=== PATIENT | male | born 1955 | race Caucasian/White ===

== ENCOUNTER 2019-03-29 18:05 | Emergency (ER) | payer OTHER, SELFPAY ==
[2019-03-29 18:12] VITALS: BP 175/89; PULSE 79; RESP 18; TEMP 36.6; O2SAT 98; BMI 24.2
--- NOTE | 2019-03-29 18:37 | DI.RAD.S_ITS ---
PROCEDURE: XR FINGER LT MIN 2V INDICATIONS: L thumb laceration from table saw TECHNIQUE: AP hand, 2 views of the 1st digit acquired. COMPARISON: None. FINDINGS: Bones: There is a moderately displaced fracture involving the volar base of the 1st distal phalanx. Soft tissues: There is a soft tissue laceration within the volar aspect of the 1st digit. There are a few associated indistinct slightly hyperdense foci. IMPRESSION: 1. Moderately displaced fracture at the base of the 1st distal phalanx. 2. Soft tissue laceration with small indistinct hypodense foci which represent small bone fragments or radiopaque foreign bodies. Dictated by: Homer Ballesteros M.D. on 03/29/2019 at 19:13 Approved by: Homer Ballesteros M.D. on 03/29/2019 at 19:16
[2019-03-29] MEDS: TET,DIPH,PERTUSS(ACELL),VAC/PF 0.5 ML SYRINGE IM (19:12)
[2019-03-29] MEDS: LIDO 1%/SOD BICARB 8.4% (10ML) 10 ML SYRINGE INJ (20:03)
[2019-03-29] MEDS: cephALEXin 250 MG PREPACK 1 BOTTLE MISC (20:03)
[2019-03-29] MEDS: cephALEXin 250 MG CAPSULE 500 MG PO (20:04)
[2019-03-29] MEDS: BACITRACIN OINT 0.9 GM PCKT 1 APPLIC TOP (20:04)
[2019-03-29 21:53] VITALS: BP 154/86; PULSE 68; RESP 18; TEMP 36.7; O2SAT 98
[2019-03-29] MEDS: HYDROCODONE/ACET 5/325 PREPACK 1 BOTTLE MISC (21:53)
--- NOTE | 2019-03-29 23:51 | ED.WOUNDLAC ---
HPI - Wound/Laceration <BRODIE Walls - Last Filed: 03/30/19 00:18> General Chief Complaint: Wound/Laceration Stated Complaint: LEFT HAND THUMB LACERATION Time Seen by Provider: 03/29/19 18:07 Source: patient Mode of arrival: Ambulatory Limitations: no limitations History of Present Illness HPI narrative: This is a 63-year-old male, nonsmoker, who presents to ED from [facility] at Dr. Morlaes's office with a chief complain of deep laceration from a table saw on left thumb which occurred around 1500 today. Patient arrived to ED with large bulky pressure dressing on affected thumb. Patient reports he was working with wood board with a table saw and it somehow sucked in the wooden board along the gloved L thumb. Patient right dominant hand and last tetanus in 2003. Patient reports numbness to tip of left thumb and difficulty with flexing and extending the affected thumb. Patient has a history of asthma and hypertension. Patient had taken 1 tab of hydrocodone at 4:35 p.m. before coming into ED which has been helping with discomfort. Last solid meal at noon and had sips of water at 5:00 p.m.. Related Data Previous Rx's Medication Instructions Recorded cephalexin [Keflex] 500 mg PO Q6H 9 Days #36 cap 03/29/19 hydrocodone-acetaminophen [[place]] 1 tab PO Q6H PRN #20 tab 03/29/19 Allergies Allergy/AdvReac Type Severity Reaction Status Date / Time fluticasone AdvReac Verified 03/29/19 18:11 [From Advair Diskus] salmeterol AdvReac Verified 03/29/19 18:11 [From Advair Diskus] Review of Systems <Ariel Henriquez BLADE CHANGER - Last Filed: 03/30/19 00:18> Review of Systems Narrative: General: Denies fever, chills, fatigue, malaise, sweats. HEENT: Denies sinus pain, ear pain, sore throat, difficulty swallowing, dizziness. Respiratory: Denies dyspnea, cough, wheezing, hemoptysis, sputum. Cardiovascular: Denies chest pain, palpitations, orthopnea, edema. Gastrointestinal: Denies nausea, vomiting, abdominal pain, diarrhea, constipation, melena. : Denies dysuria, frequency, incontinence, hematuria, urinary retention. Musculoskeletal: See HPI Skin: Denies rash, skin lesions, or other. Neurologic: Denies weakness, headache, numbness, change in speech, confusion, seizures, incoordination. Psychiatric: No concerning psychosocial issues. 12-point review of systems is negative except for those stated above. Patient History <BRODIE Walls - Last Filed: 03/30/19 00:18> Medical History Asthma (Acute) Hypertension (Acute) Surgical History Hx of cholecystectomy (Acute) Social History Smoking Status: Never smoker Smoking Status: Never smoker alcohol intake frequency: 0-2 drinks per day Substance Use Type: does not use Exam <BRODIE Walls - Last Filed: 03/30/19 00:18> Narrative Exam Narrative: General appearance: well developed, well nourished, in no acute distress. Head: normocephalic, atraumatic, no scalp lesions, non-tender. ENT: Hearing grossly intact. Nose without bleeding, purulent discharge, septal hematoma or deviation. Turbinate without erythema or swelling. Mucous membrane moist, no mucosal lesion. Throat without erythema, tonsillar hypertrophy or exudate. Uvula in midline, airway patent. Neck/Thyroid: neck supple, full range of motion, no visible masses or meningeal signs. No JVD, non-tender without lymphadenopathy. Skin: Deep jagged U shape laceration to left 1st digit involving IP joint with slow oozing. Warm and dry and appropriate color for ethnicity. Heart: no clubbing, no cyanosis, no edema. S1 and S2 normal. RRR w/o murmurs, clicks, or bruits. Lungs: Breathing even and unlabored. No stridor. No accessory muscles used. Able to speak in full sentences. Chest: normal shape and expansion. Abdomen: non-obese, non-distended. Neurologic: alert and oriented. 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 Psych: good eye contact, normal affect. Initial Vital Signs Initial Vital Signs: Vital Signs Temperature 97.8 F 03/29/19 18:12 Pulse Rate 79 03/29/19 18:12 Respiratory Rate 18 03/29/19 18:12 Blood Pressure 175/89 H 03/29/19 18:12 Pulse Oximetry 98 03/29/19 18:12 Extrem Left upper extremity: hand Details: abnormal to inspection (appears to have an appearance of hyperextension on L thumb), normal capillary refill, neuromotor exam abnormal Details: wrist extension abnormal, thumb opposition abnormal, thumb IP flexion abnormal and other (thumb IP extension abnormal), neurosensory exam abnormal (numbness to distal Left thumb phalax), tendon exam abnormal, tenderness Location: of the thumb Location: at the distal phalanx, abnormal ROM of finger (thumb-decreased strength with flexion and extension AROM and PROM) and laceration (deep jagged laceration involving IP joint of L thumb in volar aspect) <Christiano Anders DO - Last Filed: 03/30/19 03:36> Initial Vital Signs Initial Vital Signs: Vital Signs Temperature 97.8 F 03/29/19 18:12 Pulse Rate 79 03/29/19 18:12 Respiratory Rate 18 03/29/19 18:12 Blood Pressure 175/89 H 03/29/19 18:12 Pulse Oximetry 98 03/29/19 18:12 Procedures <BRODIE Walls - Last Filed: 03/30/19 00:18> Laceration Repair Laceration 1: Site: other (thumb) Side (If applicable): left Size (cm): 3.5 Description: irregular Depth: involves tendon Local Anesthetic: lidocaine 1% and with bicarb Amount of anesthesia used (mL): 2.5 Pre-repair: wound explored and irrigated extensively Skin layer closed with: nylon Size (cm): 4-0 Number of sutures: 8 Technique: simple, interrupted Orthopedic Splinting/Casting Injury #1: Side: left Upper Extremity Injury Location: finger Upper Extremity Immobilizer: aluminum form splint Post splinting neuro exam: intact Post splinting vascular exam: intact Placed by: Nursing Scores <BRODIE Walls Last Filed: 03/30/19 00:18> GCS Stew coma scale eye opening: Spontaneous Stew coma scale verbal response: Orientated [place] coma scale motor response: Obey commands [place] coma scale total score: 15 Course <BRODIE Walls - Last Filed: 03/30/19 00:18> Orders Ordered: ED Orders 03/29/19 18:37 XR finger LT min 2V Stat Discontinued Medications Hydrocodone Bitart/Acetaminophen (Vicodin 5/325 Prepack) 1 bottle MISC SEEINSTR ONE Stop: 03/29/19 21:22 Last Admin: 03/29/19 21:53 Dose: 1 bottle Documented by: SANDRA Bacitracin (Bacitracin) 1 applic TOP NOW ONE Stop: 03/29/19 19:58 Last Admin: 03/29/19 20:04 Dose: 1 applic Documented by: LAILA Cefazolin Sodium (Keflex 250 Mg Prepack) 1 bottle MISC SEEINSTR ONE Stop: 03/29/19 19:58 Last Admin: 03/29/19 20:03 Dose: 1 bottle Documented by: LAILA Cephalexin HCl (Keflex) 500 mg PO NOW ONE Stop: 03/29/19 19:58 Last Admin: 03/29/19 20:04 Dose: 500 mg Documented by: LAILA Diphtheria/Tetanus/Acell Pertussis (Adacel) 0.5 ml IM .ONCE ONE Stop: 03/29/19 18:38 Last Admin: 03/29/19 19:12 Dose: 0.5 ml Documented by: SANDRA Lidocaine/Sodium Bicarbonate (Buffered Lidocaine 10 Ml Syr) 10 ml INJ NOW ONE Stop: 03/29/19 19:58 Last Admin: 03/29/19 20:03 Dose: 10 ml Documented by: LAILA Vital Signs Vital signs: Vital Signs - 8 hr 03/29/19 21:53 Temperature 98.1 F Pulse Rate 68 Respiratory Rate 18 Blood Pressure [Left Arm] 154/86 H Pulse Oximetry 98 <Christiano Anders DO - Last Filed: 03/30/19 03:36> Course Course Narrative: I have independently examined patient and discussed history and ROS. I spoke with our product/industry consultant orthopedist (Dr. Levine) whom suggests digital block, extensive washout, wound repair, splint. He will refer case to hand surgeon (Dr. Pike). As a backup I contacted [facility] product/industry consultant whom stated they would be happy to help as well. The contact info was included in discharge. Orders Ordered: ED Orders 03/29/19 18:37 XR finger LT min 2V Stat Discontinued Medications Hydrocodone Bitart/Acetaminophen (Vicodin 5/325 Prepack) 1 bottle MISC SEEINSTR ONE Stop: 03/29/19 21:22 Last Admin: 03/29/19 21:53 Dose: 1 bottle Documented by: SANDRA Bacitracin (Bacitracin) 1 applic TOP NOW ONE Stop: 03/29/19 19:58 Last Admin: 03/29/19 20:04 Dose: 1 applic Documented by: LAILA Cefazolin Sodium (Keflex 250 Mg Prepack) 1 bottle MISC SEEINSTR ONE Stop: 03/29/19 19:58 Last Admin: 03/29/19 20:03 Dose: 1 bottle Documented by: LAILA Cephalexin HCl (Keflex) 500 mg PO NOW ONE Stop: 03/29/19 19:58 Last Admin: 03/29/19 20:04 Dose: 500 mg Documented by: LAILA Diphtheria/Tetanus/Acell Pertussis (Adacel) 0.5 ml IM .ONCE ONE Stop: 03/29/19 18:38 Last Admin: 03/29/19 19:12 Dose: 0.5 ml Documented by: SANDRA Lidocaine/Sodium Bicarbonate (Buffered Lidocaine 10 Ml Syr) 10 ml INJ NOW ONE Stop: 03/29/19 19:58 Last Admin: 03/29/19 20:03 Dose: 10 ml Documented by: LAILA Vital Signs Vital signs: Vital Signs - 8 hr 03/29/19 21:53 Temperature 98.1 F Pulse Rate 68 Respiratory Rate 18 Blood Pressure [Left Arm] 154/86 H Pulse Oximetry 98 MDM - Wound/Laceration <Ariel BRODIE Henriquez - Last Filed: 03/30/19 00:18> Differential Diagnosis Differential diagnosis: Likely laceration and other (open fracture, tendon/ligament injury) Medical Records Attestation: I reviewed the patient's medical records. Imaging Data XR-finger LT: Radiologist's Impression: [address] [address] XRay Report Signed Patient: Marino Ventura EMR#: [id number] : [id number]:[id number] Age/Sex: 63 / MDate of Service: 03/29/19 Loc: ED Accession Number: [id number] Procedure: XR finger LT min 2V Ordering Provider: Ariel Henriquez PROCEDURE: XR FINGER LT MIN 2V INDICATIONS: L thumb laceration from table saw TECHNIQUE: AP hand, 2 views of the 1st digit acquired. COMPARISON: None. FINDINGS: Bones: There is a moderately displaced fracture involving the volar base of the 1st distal phalanx. Soft tissues: There is a soft tissue laceration within the volar aspect of the 1st digit. There are a few associated indistinct slightly hyperdense foci. IMPRESSION: 1. Moderately displaced fracture at the base of the 1st distal phalanx. 2. Soft tissue laceration with small indistinct hypodense foci which represent small bone fragments or radiopaque foreign bodies. Dictated by: Homer Ballesteros M.D. on 03/29/2019 at 19:13 Approved by: Homer Ballesteros M.D. on 03/29/2019 at 19:16 MDM Narrative Medical decision making narrative: This is a 63 year old male who presents to ED with deep laceration involving his left thumb IP joint and intra-articular joint from a table saw this afternoon. X-ray test today shows a moderately displaced fracture involving the fall are base of the 1st distal phalanx with soft tissue laceration and small in distinctive hypodensities foci which represents small bone fragments or radial plaque foreign bodies. Patient had decreased sensation and strength for flexion and extension of affected finger. Wound was explored and irrigated extensively with gentle pressure. No obvious foreign body was visualized. The laceration has repaired with loose simple interrupted sutures. Please see procedure note. Patient was medicated with Keflex 500 mg and prepack and written script has been provided for 10 day course for q.i.d. dose. Patient also discharged to home with prepack [place] and prescription has been provided for additional medication for pain management and informed narcotic medication precautions. Patient advised to take [id number] Tylenol for pain and [place] for severe pain. Patient reports has GI upsets with Motrin intake. Affected finger has been placed on aluminum splint for immobilization after dressed with Xeroform and bulky dressing. Dr. Levine at [facility] was consulted with the findings. Patient was provided with [facility] and also [facility] for hand specialist since [facility] orth[facility]ist hand specialist is currently on leave. Return precautions, wound care were discussed and patient verbalized understanding and agrees with the treatment plan. Tdap has been updated today. Discharge Plan Departure Patient Disposition: Home Clinical Impression: Displaced fracture of distal phalanx of left thumb, initial encounter for open fracture Discharge Date/Time: 03/29/19 22:06 Instructions: DI for Laceration Repair Activity Restrictions/Additional Instructions: You have been diagnosed with [mildly displaced open fracture involving thumb joint in L hand. The laceration has been repaired and the affected finger has been placed on a splint. You were medicated with Keflex 500 mg while in the ED as a 1st dose of antibiotic medication and prepack to prevent infection and medicated with [place] for pain]. What to do: *Take your medications as directed. Keflex 500 mg 4 times a day for next 10 days. [place] every 6 hours as needed for severe pain. It can cause drowsiness so please do not drive, drink alcohol, or operate heavy equipments. Please monitor for signs and symptoms for infection. Please keep finger splint all times. Please do not get your wound soaked in the water until suture removal. Keep your dressing intact for next 24 hrs. After then, you could remove your dressing, wash with soap and water. Pat dry with clean paper towel and dress it with antibiotic ointment. You can change dressing as needed and daily. Please monitor for signs and symptoms for infection such as increasing redness, swelling, warmth, pain, fever, purulent discharge. If this occurs, please return to ED or follow up with your primary care physician since your wound may be gotten infected. Please follow up with your primary care provider in 2-3 days for recheck wound. Your suture should be removed [7-10 ] days. This can be done by your primary provider, walk-in clinic or here in ED. Please keep your wound clean, dry and intact all times. *Follow up with your primary care provider/[facility] in 2-3 days, call for an appointment. Let them know you were seen in the ED and that we asked you to be seen in follow up. Also Dr. Hendrix's contact information has been provided for a back up at [facility]. *Return to ED if you have any new, worsening, or concerning symptoms or chest pain, breathing difficulty, severe pain, signs and symptoms for infection or any acute concerns Prescriptions: New cephalexin [Keflex] 500 mg capsule 500 mg PO Q6H 9 Days Qty: 36 RF: 0 hydrocodone-acetaminophen [[place]] 5-325 mg tablet 1 tab PO Q6H PRN (Reason: pain) Qty: 20 RF: 0 Referrals: [facility] [Provider Group] Godwin Morales MD [Primary Care Provider] - Polo Hendrix [Non-Staff] -
== END 2019-03-29 22:06 | disposition home or self-care (01) ==
PROVIDERS: Emergency Provider Nurse Practitioner Family; PCP Family Medicine
DX: S62.522B Displaced fracture of distal phalanx of left thumb, initial encounter for open fracture (principal); W31.2XXA Contact with powered woodworking and forming machines, initial encounter; Z23 Encounter for immunization
CPT/HCPCS: 12002; 73140; 90471; 99283; 99284; 90715

== ENCOUNTER 2019-03-30 07:50 | Emergency (ER) | payer OTHER, SELFPAY ==
[2019-03-30 07:54] VITALS: BP 168/77; PULSE 74; RESP 18; TEMP 36.7; O2SAT 97; BMI 24.2
--- NOTE | 2019-03-30 08:06 | ED_ITS ---
HPI - Recheck/Abnormal Lab/Rx General Chief Complaint: Recheck/Abnormal Lab/Rx Stated Complaint: L thumb still bleeding Time Seen by Provider: 03/30/19 07:54 Source: patient Mode of arrival: Ambulatory Limitations: no limitations History of Present Illness HPI narrative: Patient is a 63-year-old male who presents with left thumb injury. He was seen evaluated yesterday after table saw injury. He states that his dressing is soaked with blood. He continues to have numbness and tingling at the tip of his thumb. He states this is unchanged from yesterday. He is was aspirin or anticoagulation. MD complaint: wound re-check Related Data Previous Rx's Medication Instructions Recorded cephalexin [Keflex] 500 mg PO Q6H 9 Days #36 cap 03/29/19 hydrocodone-acetaminophen [[place]] 1 tab PO Q6H PRN #20 tab 03/29/19 Allergies Allergy/AdvReac Type Severity Reaction Status Date / Time fluticasone AdvReac Verified 03/29/19 18:11 [From Advair Diskus] salmeterol AdvReac Verified 03/29/19 18:11 [From Advair Diskus] Review of Systems Review of Systems Narrative: GENERAL: Denies chills,fever HEENT: Denies throat pain RESPIRATORY: Denies dyspnea, cough, wheezing CARDIOVASCULAR: Denies chest pain, palpitations GASTROINTESTINAL: Denies nausea, vomiting MUSCULOSKELETAL: Denies extremity pain, injury SKIN: See HPI NEUROLOGIC: Denies weakness, dizziness, headache, numbness 8 point review of systems is negative except for those stated above and HPI Patient History Medical History Asthma (Acute) Hypertension (Acute) Surgical History Hx of cholecystectomy (Acute) Social History Smoking Status: Never smoker Smoking Status: Never smoker alcohol intake frequency: 0-2 drinks per day Substance Use Type: does not use Exam Initial Vital Signs Initial Vital Signs: Vital Signs Temperature 98.0 F 03/30/19 07:54 Pulse Rate 74 03/30/19 07:54 Respiratory Rate 18 03/30/19 07:54 Blood Pressure 168/77 H 01/18/20 07:54 Pulse Oximetry 97 03/30/19 07:54 GENERAL: Well-appearing, well-nourished and in no acute distress. CARDIOVASCULAR: peripheral pulses in tact, cap refill <2 sec RESPIRATORY: No respiratory distress, speaks in full sentences without difficulty EXTREMITIES: Normal range of motion, no clubbing or edema. Neurovascularly intact NEUROLOGICAL: Cranial nerves II through XII grossly intact. Normal gait and speech. SKIN: Left thumb laceration sutures intact mild amount of oozing at laceration site. There is still a gap between skin layers no arterial bleed. Decreased sensation Procedures Orthopedic Splinting/Casting Injury #1: Side: left Upper Extremity Injury Location: finger Upper Extremity Immobilizer: thumb spica (Velcro) Post splinting neuro exam: intact Post splinting vascular exam: intact Placed by: Nursing Course Vital Signs Vital signs: Vital Signs - 8 hr 03/30/19 07:54 Temperature 98.0 F Pulse Rate 74 Respiratory Rate 18 Blood Pressure 168/77 H Pulse Oximetry 97 MDM - Recheck/Abnormal Lab/Rx MDM Narrative Medical decision making narrative: Wound is clean with all water no significant bleeding no need for any new sutures. Surgicel is placed along with Vaseline gauze 4x4s and Coban. Patient is given a thumb spica splint. Discharge Plan Departure Patient Disposition: Home Clinical Impression: Encounter for wound re-check Discharge Date/Time: 03/30/19 08:20 Instructions: Finger Fracture, Skin Wound Activity Restrictions/Additional Instructions: *You have been diagnosed with left thumb laceration and fracture *What to do: Keep dressing on for 24 hours. Keep thumb splint on at all times when you're not changing the dressing. Make clean wound with soap and water may apply antibiotic ointment is on 1-2 times daily *Continue to take medications as directed Continue antibiotics as prescribed yesterday and finish until gone Continue pain medication as prescribed yesterday and take only as needed *Follow up with [facility] call them on Monday, you were seen in the emergency department and need follow-up *Return to ER if you should have redness pus swelling increased pain persistent bleeding or any new, worsening or concerning symptoms CONTROLLED SUBSTANCE DISCHARGE (Narcotoic/benzodiazepine/Flexeril/Phenergan) 1. You have been prescribed narcotic medications, it does have acetaminophen/Tylenol/paracetamol in it so do not take extra Tylenol or Tylenol containing products TRAMADOL DOES NOT CONTAIN TYLENOL 2. Please understand that we cannot provide further refills of narcotics, benzodiazepines or controlled substances through the ED and her pain management will need to be through your provider. 3. While on these medications you cannot drive or operate heavy machinery. 4. You cannot sign legal documents or perform any duties such as this. 5. As long as you're taking opiate pain medications he should also be taking a stool softener such as Colace, Dulcolax, MiraLAX or prune juice, to help avoid constipation. Prescriptions: No Action cephalexin [Keflex] 500 mg capsule 500 mg PO Q6H 9 Days Qty: 36 RF: 0 hydrocodone-acetaminophen [Ne[place]u] 5-325 mg tablet 1 tab PO Q6H PRN (Reason: pain) Qty: 20 RF: 0 Referrals: [facility] [Provider Group] Bianca Levine MD [Physician] - Godwin Morales MD [Primary Care Provider] - Get Pike MD [Physician] -
--- NOTE | 2019-03-30 08:22 | PC.NURSE ---
dressing rewrapped by Dr. Garcia. thumb splint applied
== END 2019-03-30 08:20 | disposition home or self-care (01) ==
PROVIDERS: Emergency Provider Emergency Medicine; PCP Family Medicine
DX: Z48.00 Encounter for change or removal of nonsurgical wound dressing (principal)
CPT/HCPCS: 99282